=== PATIENT | male | born 1985 | race Caucasian/White ===

== ENCOUNTER 2017-03-01 10:42 | Emergency (ER) | payer BC, OTHER ==
[~2017-03-01] VITALS: Ht 177.8 cm; Wt 83.9 kg
[2017-03-01] MEDS ORDERED: LORAZEPAM 2 MG/1 ML VIAL IV ONE (11:15)
[2017-03-01] MEDS ORDERED: IV NORMAL SALINE 1000 ML BAG IV ONE (11:15)
--- NOTE | 2017-03-01 11:16 | NUR ---
PT IS IN ROOM #2A. DR FLOYD EVALUATED THE PT.
[2017-03-01 11:20] LABS: BASOPHILS % (AUTO) 0.9 % (0.0-2.0); EOSINOPHILS # (AUTO) 0.1 K/uL (0.0-0.7); EOSINOPHILS % (AUTO) 1.8 % (0.0-7.0); HEMATOCRIT 47.5 % (40-50); HEMOGLOBIN 15.6 G/DL (14.0-18.0); LYMPHOCYTES # (AUTO) 1.1 K/UL (0.8-4.8); MEAN CORPUSCULAR HEMOGLOBIN 28.9 UUG (27.0-31.0); MEAN CORPUSCULAR HGB CONC 33 g/dL (32.0-37.0); MEAN CORPUSCULAR VOLUME 88.4 FL (82.0-92.0); MONOCYTES # (AUTO) 0.3 K/UL (0.1-1.30); MONOCYTES % (AUTO) 7.8 % (0.0-11.0); NEUTROPHILS # (AUTO) 2.9 K/UL (1.8-8.9); NEUTROPHILS % (AUTO) 64.5 % (38.5-71.5); PLATELET COUNT (AUTO) 359 K/UL (150-450); RED BLOOD CELL COUNT(AUTO) 5.38 MIL/UL (4.7-6.1); WHITE BLOOD COUNT (AUTO) 4.4 K/UL (4.0-11.2)
[2017-03-01] MEDS ORDERED: LORAZEPAM 2 MG/1 ML VIAL ONE (11:30)
[2017-03-01 11:37] LABS: CREATININE 0.8 mg/dL (0.6-1.3); POTASSIUM 3.8 mmol/L (3.5-5.1)
--- NOTE | 2017-03-01 13:20 | NUR ---
PT WAS D/C TO HOME. D/C INSTRUCTIONS GIVEN TO THE PT. PT DENIES PAIN, NO SON, NO N/V.
[2017-03-01 13:24] VITALS: BP 132/72
[2017-03-01] MEDS ORDERED: CLONAZEPAM 0.5 MG TABLET PO ONE (13:30)
[2017-03-01] MEDS ORDERED: CLONAZEPAM 0.5 MG TABLET ONE (13:34)
== END 2017-03-01 13:40 | disposition home or self-care (01) ==
LOC: ER 10:42
DX: E86.0 Dehydration (principal); F41.9 Anxiety disorder, unspecified; F90.9 Attention-deficit hyperactivity disorder, unspecified type
CPT/HCPCS: 36415; 80048; 84443; 84484; 85025; 93005; 96361; 96374; 99285; A4663 ×2; J2060; J7030; 70030-TC

== ENCOUNTER 2017-03-22 07:41 | Emergency (ER) | payer SELFPAY ==
[~2017-03-22] VITALS: Ht 172.7 cm; Wt 70.3 kg
[2017-03-22] MEDS ORDERED: ATIVAN PO (07:48)
[2017-03-22] MEDS ORDERED: LORAZEPAM 0.5 MG TABLET PO ONE ×2 (08:15→09:00)
[2017-03-22] MEDS ORDERED: LORAZEPAM 1 MG TABLET ONE (08:23)
--- NOTE | 2017-03-22 09:10 | NUR ---
PT SAYS FEELS BETTER AND READY TO GO HOME.
--- NOTE | 2017-03-22 09:22 | NUR ---
Patient discharged to home in stable conditon. Written and verbal after care instructions given. Patient verbalizes understanding of instructions.PT WALKS IN STEADY GAIT. PT MOM HERE TO TAKE THE PT HOME.
[2017-03-22 09:24] VITALS: BP 143/82
[2017-03-22] MEDS ORDERED: LORAZEPAM 0.5 MG TABLET ONE (09:32)
== END 2017-03-22 09:25 | disposition home or self-care (01) ==
LOC: ER 07:41
DX: F41.9 Anxiety disorder, unspecified (principal); R00.2 Palpitations; F10.20 Alcohol dependence, uncomplicated
CPT/HCPCS: 93005; A4663

== ENCOUNTER 2017-04-08 20:32 | Emergency (ER) | payer SELFPAY ==
[~2017-04-08] VITALS: Ht 175.3 cm; Wt 69.4 kg
[~2017-04-08 20:32] MED LIST: ATIVAN PO
--- NOTE | 2017-04-08 20:57 | NUR ---
Pt ambulated to room with steady gait. Pt has no physical complaints, pt here for med re-fill of ativan. Pt resting in position of co mfort for self. Awaiting further eval.
--- NOTE | 2017-04-08 21:26 | NUR ---
Pt see by Dr. Singh. Pt medicated for anxiety. Pt stable for discharge per MD. Pt given ACI. Pt verbalized understanding of dc instructions. 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
[2017-04-08 21:28] VITALS: BP 120/68
[2017-04-08] MEDS ORDERED: LORAZEPAM 0.5 MG TABLET PO ONE (21:30)
[2017-04-08] MEDS ORDERED: LORAZEPAM 0.5 MG TABLET ONE (21:35)
== END 2017-04-08 21:29 | disposition home or self-care (01) ==
LOC: ER 20:33
DX: F41.9 Anxiety disorder, unspecified (principal); F90.9 Attention-deficit hyperactivity disorder, unspecified type
CPT/HCPCS: 99284; A4663